=== PATIENT | male | born 1950 | race Caucasian/White ===

== ENCOUNTER 2020-05-11 09:23 | Emergency (ER) | payer MEDICARE, OTHER, SELFPAY ==
[2020-05-11] VITALS (7 sets, daily range): BP systolic 120–122; BP diastolic 64–76; PULSE 87–88; RESP 16–20; TEMP 36.9; O2SAT 87–95; BMI 34.2
--- NOTE | 2020-05-11 09:58 | XRR_ITS ---
PROCEDURE INFORMATION: Exam: XR Chest, 1 View Exam date and time: 05/11/2020 10:18 AM Age: 69 years old Clinical indication: Fever and shortness of breath; Additional info: Covid + - SOB, hypoxia TECHNIQUE: Imaging protocol: XR of the chest Views: 1 view. COMPARISON: No relevant prior studies available. FINDINGS: Lungs: COPD, interstitial disease, and asymmetric left-sided airspace disease in the setting of COVID-19 pneumonitis. Pleural space: No significant pleural effusion. Heart/Mediastinum: Epicardial fat without cardiomegaly. Diaphragm: Asymmetric elevation of the right hemidiaphragm. Bones/joints: Osteopenia and degenerative change. XR/XR chest 1V portable [id number] IMPRESSION: COPD, interstitial disease, and asymmetric left-sided airspace disease in the setting of COVID-19 pneumonitis.
--- NOTE | 2020-05-11 10:01 | W.ED.COVID ---
HPI - COVID General: Chief Complaint: Shortness of Breath/Dyspnea Stated Complaint: Covid postive, on last day of isolation Time Seen by Provider: 05/11/20 09:45 Triage information: Has fever, cough or shortness of breath. Exposure to COVID + person last 14 days History of Present Illness: HPI Narrative: 69-year-old male patient presents to the emergency department with worsening symptoms of COVID illness. States increased shortness of breath with low-grade fever, onset since diagnosis on 05/01/2020 at [facility]. States past several days worsening shortness of breath. O2 saturation 87 to 88% on room air during my conversation with him. Patient was placed on 2 L nasal cannula with oxygen saturation increased to 92%. He reports at home, pulse oximetry readings 92 to 93%. MD complaint: known COVID positive Prior covid testing: yes, results pending at other location ([place]) Prior testing date: 05/01/20 COVID 19 common symptoms: positive fever(s), chills, cough, dyspnea, fatigue, body aches, nasal congestion and nausea; negative headache(s), throat pain, vomiting or diarrhea COVID 19 other sytmptoms: negative chest pain Severity: moderate Treatment prior to arrival: acetaminophen COVID Results: No Data to Display Review of Systems General: Reports: 10 or more systems reviewed and unremarkable except in HPI and below Const: Reports: fever(s), chills, body aches, change in appetite, fatigue and malaise Eyes: Denies: blurry vision or eye redness ENMT: Reports: nasal congestion; Denies: throat pain, hoarseness or epistaxis Card: Reports: orthopnea; Denies: chest pain, palpitations or irregular heart rhythm Resp: Reports: dyspnea and chest congestion GI: Reports: nausea; Denies: abdominal pain, vomiting or diarrhea : Denies: dysuria Musc: Denies: back pain Skin/Breast: Denies: rash or pruritus Neuro: Denies: headache(s), weakness in extremities or behavioral changes Deacon/Lymph: Denies: easy bruising Physical Exam Const: COMMON NORMALS: no acute distress, patient oriented x3 and alert GENERAL APPEARANCE: cooperative NUTRITIONAL APPEARANCE: overweight ORIENTATION/CONSCIOUSNESS: Yes awake, Yes oriented to person, Yes oriented to place and Yes oriented to time HENMT: COMMON NORMALS: normocephalic, Normal external nose present and moist oral mucous membranes HEAD & SCALP: normocephalic NOSE: Normal external nose present Eye: COMMON NORMALS: Equal, round and reactive pupils present and EOMs intact bilaterally GENERAL EYE: appearance normal, both eyes and all related structures PUPIL: Yes Equal, round and reactive pupils present Neck/C-Spine: COMMON NORMALS: full ROM and no lymphadenopathy GENERAL: Yes normal visual inspection and Yes trachea midline CERVICAL SPINE: Yes cervical ROM normal Lymph: LYMPHATIC: no lymphadenopathy noted Chest: COMMONS NORMALS: normal inspection of the chest Resp: COMMON NORMALS: normal respiratory effort and clear to auscultation bilaterally AUSCULTATION: clear to auscultation bilaterally, rhonchi throughout and breath sounds absent bilateral (Bases) Cardio: COMMON NORMALS: regular rhythm, S1 normal heart sound present, S2 normal heart sound present and Peripheral pulses 2+ throughout RHYTHM: regular rhythm HEART SOUNDS: S1 normal heart sound present and S2 normal heart sound present PERIPHERAL PULSES: Peripheral pulses 2+ throughout GI: COMMON NORMALS: Normal to inspection, nondistended, normoactive bowel sounds present, Soft to palpation and non-tender INSPECTION: Yes normal to inspection PALPATION: Yes Soft to palpation : COMMON NORMALS: Yes no CVA tenderness BLADDER/KIDNEY EXAM: Yes no CVA tenderness Back/Pelvis: COMMON NORMALS: no CVA tenderness and thoracic and lumbar spine normal to inspection Extremity: COMMON NORMALS: normal to inspection and capillary refill normal Neuro: COMMON NORMALS: patient oriented x3 and no focal motor deficits SENSORIUM/ORIENTATION: Yes alert, Yes oriented to person, Yes oriented to place and Yes oriented to time Psych: COMMON NORMALS: mental status grossly normal, Normal thought process present and cooperative ACTIVITY/MOTOR BEHAVIOR: Yes appropriate eye contact THOUGHT PROCESS: Normal thought process present Skin: COMMON NORMALS: no rashes or lesions noted and turgor normal GENERAL SKIN EXAM: no rashes or lesions noted and turgor normal Course ED course: 69-year-old male patient presents to the emergency department with worsening COVID symptoms. Tested positive on 05/01/2020 with continual shortness of breath, noted hypoxia while here in the ED, remains low 90s on 3 L nasal cannula, transfer of care to Dr. Marinelli as patient will most likely require hospitalization. Vital Signs: Vital signs: Vital Signs Temperature 98.4 F 05/11/20 09:30 Pulse Rate 87 05/11/20 17:09 Respiratory Rate 16 05/11/20 17:09 Blood Pressure 121/64 05/11/20 15:00 Pulse Oximetry 90 05/11/20 17:09 MDM - COVID Lab Data Result diagrams: 05/11/20 13:17 05/11/20 13:17 Labs: Lab Results 05/11/20 05/11/20 05/11/20 Range/Units 11:15 13:17 13:17 WBC 5.9 (4.0-10.0) 10^3/uL RBC 5.15 (4.1-5.3) 10^6/uL Hgb 15.4 (11.7-16.6) g/dL Hct 45.7 (42.0-52.0) % MCV 88.7 (80-94) fL MCH 29.9 (28.0-34.0) pg MCHC 33.7 (30.0-36.0) g/dL RDW 12.0 L (12.1-15.1) % Plt Count 241 (130-400) 10^3/cmm MPV 10.4 (7.4-10.4) fL Neut % (Auto) 64.6 % Lymph % (Auto) 24.0 % [place] % (Auto) 9.9 % Eos % (Auto) 0.7 % Baso % (Auto) 0.5 % Neut # (Auto) 3.80 (1.8-7.7) 10^3/uL Lymph # (Auto) 1.4 (0.8-4.8) 10^3/uL [place] # (Auto) 0.6 (0.2-0.9) 10^3/uL Eos # (Auto) 0.0 (0.0-0.8) 10^3/uL Baso # (Auto) 0.0 (0.0-0.1) 10^3/uL Nucleated RBC % (auto) 0 % Nucleated RBCs # 0.0 /100WBC Fibrinogen 583 H (174-498) mg/dL D-Dimer 0.48 (0-0.59) ug/mIFEU Specimen Type Arterial Sample Site Radial, right ABG pH 7.48 H (7.35-7.45) ABG pCO2 35.3 (35-45) mmHg ABG pO2 67.6 L (80.0-100.0) mmHg ABG HCO3 26.2 H (22-26) mmol/L ABG O2 Saturation 95.5 ABG Base Excess 2.9 H (-2.0-2.0) mmol/L Pierre Test Pos A-a O2 Gradient 15.0 H (5-10) mmHg Hematocrit 48.0 (42-52) % Hgb O2 Saturation 94.0 L (95-100) % Carboxyhemoglobin 1.1 (0.4-20.1) %THgb Methemoglobin 0.5 (0.4-1.5) % Total Hemoglobin 15.7 (14-18) g/dL Sodium 133.0 (131-143) mmol/L Potassium 3.4 L (3.5-5.0) mmol/L Glucose 100.0 (70-115) mg/dL Ionized Calcium 1.2 (1.1-1.4) mmol/L O2 Delivery Device Nc O2 Liters/Min 3.0 % FiO2 32.0 % Auto Damage Estimator ID Gd Chloride (98-107) mmol/L Carbon Dioxide (22-29) mmol/L Anion Gap (5-19) BUN (8-23) mg/dL Creatinine (0.7-1.2) mg/dL GFR Calculation (90-130) mL/min Calculated Osmolality (285-295) mOsm/kg Lactic Acid (0.5-2.2) mmol/L Calcium (8.5-10.5) mg/dL Total Bilirubin (0.15-1.2) mg/dL AST (0-40) U/L ALT (0-41) U/L Alkaline Phosphatase (40-130) IU/L Lactate Dehydrogenase (135-225) U/L Troponin T Baseline (0-15) ng/L Troponin T 120 Minute (0-15) ng/L Delta Troponin T (0-10) ABS# Total Protein (6.6-8.7) g/dL Albumin (3.5-5.2) g/dL Globulin (1.3-4.6) g/dL 05/11/20 05/11/20 05/11/20 Range/Units 13:17 13:17 13:17 WBC (4.0-10.0) 10^3/uL RBC (4.1-5.3) 10^6/uL Hgb (11.7-16.6) g/dL Hct (42.0-52.0) % MCV (80-94) fL MCH (28.0-34.0) pg MCHC (30.0-36.0) g/dL RDW (12.1-15.1) % Plt Count (130-400) 10^3/cmm MPV (7.4-10.4) fL Neut % (Auto) % Lymph % (Auto) % [place] % (Auto) % Eos % (Auto) % Baso % (Auto) % Neut # (Auto) (1.8-7.7) 10^3/uL Lymph # (Auto) (0.8-4.8) 10^3/uL [place] # (Auto) (0.2-0.9) 10^3/uL Eos # (Auto) (0.0-0.8) 10^3/uL Baso # (Auto) (0.0-0.1) 10^3/uL Nucleated RBC % (auto) % Nucleated RBCs # /100WBC Fibrinogen (174-498) mg/dL D-Dimer (0-0.59) ug/mIFEU Specimen Type Sample Site ABG pH (7.35-7.45) ABG pCO2 (35-45) mmHg ABG pO2 (80.0-100.0) mmHg ABG HCO3 (22-26) mmol/L ABG O2 Saturation ABG Base Excess (-2.0-2.0) mmol/L Pierre Test A-a O2 Gradient (5-10) mmHg Hematocrit (42-52) % Hgb O2 Saturation (95-100) % Carboxyhemoglobin (0.4-20.1) %THgb Methemoglobin (0.4-1.5) % Total Hemoglobin (14-18) g/dL Sodium 134 L (131-143) mmol/L Potassium 3.8 (3.5-5.0) mmol/L Glucose 93 (70-115) mg/dL Ionized Calcium (1.1-1.4) mmol/L O2 Delivery Device O2 Liters/Min % FiO2 % Auto Damage Estimator ID Chloride 94 L (98-107) mmol/L Carbon Dioxide 23 (22-29) mmol/L Anion Gap 20.8 H (5-19) BUN 11 (8-23) mg/dL Creatinine 1.1 (0.7-1.2) mg/dL GFR Calculation 66.4 L (90-130) mL/min Calculated Osmolality 277 L (285-295) mOsm/kg Lactic Acid 1.0 (0.5-2.2) mmol/L Calcium 8.9 (8.5-10.5) mg/dL Total Bilirubin 0.4 (0.15-1.2) mg/dL AST 27 (0-40) U/L ALT 32 (0-41) U/L Alkaline Phosphatase 63 (40-130) IU/L Lactate Dehydrogenase 189 (135-225) U/L Troponin T Baseline 10 (0-15) ng/L Troponin T 120 Minute (0-15) ng/L Delta Troponin T (0-10) ABS# Total Protein 6.7 (6.6-8.7) g/dL Albumin 3.7 (3.5-5.2) g/dL Globulin 3.0 (1.3-4.6) g/dL 05/11/20 Range/Units 15:29 WBC (4.0-10.0) 10^3/uL RBC (4.1-5.3) 10^6/uL Hgb (11.7-16.6) g/dL Hct (42.0-52.0) % MCV (80-94) fL MCH (28.0-34.0) pg MCHC (30.0-36.0) g/dL RDW (12.1-15.1) % Plt Count (130-400) 10^3/cmm MPV (7.4-10.4) fL Neut % (Auto) % Lymph % (Auto) % [place] % (Auto) % Eos % (Auto) % Baso % (Auto) % Neut # (Auto) (1.8-7.7) 10^3/uL Lymph # (Auto) (0.8-4.8) 10^3/uL [place] # (Auto) (0.2-0.9) 10^3/uL Eos # (Auto) (0.0-0.8) 10^3/uL Baso # (Auto) (0.0-0.1) 10^3/uL Nucleated RBC % (auto) % Nucleated RBCs # /100WBC Fibrinogen (174-498) mg/dL D-Dimer (0-0.59) ug/mIFEU Specimen Type Sample Site ABG pH (7.35-7.45) ABG pCO2 (35-45) mmHg ABG pO2 (80.0-100.0) mmHg ABG HCO3 (22-26) mmol/L ABG O2 Saturation ABG Base Excess (-2.0-2.0) mmol/L Pierre Test A-a O2 Gradient (5-10) mmHg Hematocrit (42-52) % Hgb O2 Saturation (95-100) % Carboxyhemoglobin (0.4-20.1) %THgb Methemoglobin (0.4-1.5) % Total Hemoglobin (14-18) g/dL Sodium (131-143) mmol/L Potassium (3.5-5.0) mmol/L Glucose (70-115) mg/dL Ionized Calcium (1.1-1.4) mmol/L O2 Delivery Device O2 Liters/Min % FiO2 % Auto Damage Estimator ID Chloride (98-107) mmol/L Carbon Dioxide (22-29) mmol/L Anion Gap (5-19) BUN (8-23) mg/dL Creatinine (0.7-1.2) mg/dL GFR Calculation (90-130) mL/min Calculated Osmolality (285-295) mOsm/kg Lactic Acid (0.5-2.2) mmol/L Calcium (8.5-10.5) mg/dL Total Bilirubin (0.15-1.2) mg/dL AST (0-40) U/L ALT (0-41) U/L Alkaline Phosphatase (40-130) IU/L Lactate Dehydrogenase (135-225) U/L Troponin T Baseline (0-15) ng/L Troponin T 120 Minute 9.89 (0-15) ng/L Delta Troponin T -0.11 L (0-10) ABS# Total Protein (6.6-8.7) g/dL Albumin (3.5-5.2) g/dL Globulin (1.3-4.6) g/dL COVID Results: No Data to Display Imaging Data CXR: Radiologist's impression: [address] [address] XRay Report Signed Patient: Nishant Shaw #: [id number] : 1Acct#:[id number] Age/Sex: 69 / MADM Date: 05/11/20 Loc: ERRoom/Bed: Attending Dr: Ordering Provider/Ordering MD: Kaykay Goyal Date of Service: 05/11/20 Procedure(s): XR chest 1V portable [id number] Accession Number(s): [id number] Report Number: [id number] PROCEDURE INFORMATION: Exam: XR Chest, 1 View Exam date and time: 05/11/2020 10:18 AM Age: 69 years old Clinical indication: Fever and shortness of breath; Additional info: Covid + - SOB, hypoxia TECHNIQUE: Imaging protocol: XR of the chest Views: 1 view. COMPARISON: No relevant prior studies available. FINDINGS: Lungs: COPD, interstitial disease, and asymmetric left-sided airspace disease in the setting of COVID-19 pneumonitis. Pleural space: No significant pleural effusion. Heart/Mediastinum: Epicardial fat without cardiomegaly. Diaphragm: Asymmetric elevation of the right hemidiaphragm. Bones/joints: Osteopenia and degenerative change. XR/XR chest 1V portable [id number] IMPRESSION: COPD, interstitial disease, and asymmetric left-sided airspace disease in the setting of COVID-19 pneumonitis. Dictated By:Kirill Moctezuma MD Signed By:Kirill Moctezuma MDSigned Date/Time:05/11/20 1048 DD/ 1046 EKG Data EKG 1: EKG interpretation date: 05/11/20 EKG interpretation time: 11:10 Other EKG comments: Sinus rhythm, moderate T wave abnormality, consider lateral ischemia, abnormal EKG Discharge Plan Discharge Patient Disposition: Home Clinical Impression: COVID-19 Condition: Stable Prescriptions: New Decadron 6 mg tablet 6 mg PO DAILY Qty: 7 RF: 0 No Action Euthyrox 137 mcg tablet 137 mcg PO DAILY RF: 0 amlodipine 10 mg tablet 10 mg PO DAILY RF: 0 benazepril 20 mg tablet 20 mg PO DAILY RF: 0 hydrochlorothiazide 12.5 mg tablet 12.5 mg PO DAILY RF: 0 Discharge Orders: Discharge Order (Routine); Ordered 05/11/20 Ordered By: Nory Marinelli Other Ambulatory Orders: DME: Oxygen (Order) Location: None Selected Ordered By: Nory Marinelli DME: Oxygen (Order) Location: None Selected Ordered By: Nory Marinelli Discharge Diet: Advance as tolerated Discharge Activity: Limit activity as instructed Patient Instructions: Viral Pneumonia (ED) Activity Restrictions/Additional Instructions: To continue to self quarantine as long as you are symptomatic. It is recommended that you continue to quarantine for a few days after that. You can check with your primary care doctor for further advice on this. Take the Decadron as prescribed once a day. Return to the emergency room immediately if you feel that you are getting worse or your oxygen level will not stay above 90. Discharge Date/Time: 05/11/20 17:10 Coding Level of Care Code ED Manager Intelligence for Abbey Hernandez Exam Comprehensive
--- NOTE | 2020-05-11 10:45 | ECG_ITS ---
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 Measurements Intervals [place] Rate: 78 P: 36 ID: [id number] QRS: -15 QRSD: 155 T: 156 QT: 387 QTc: 443 Interpretive Statements SINUS RHYTHM LEFT BUNDLE BRANCH BLOCK [120+ ms QRS DURATION, 80+ ms Q/S IN V1/V2, 85+ ms R IN I/aVL/V5/V6] No previous ECG available for comparison Electronically Signed On 05-11-2020 19:45:30 CDT by Laila Ellison M.D. [id number]
[2020-05-11 11:30] LABS: ABG PCO2 35.3 mmHg (35-45); ABG PH Result 7.48 (7.35-7.45); Base Excess ABG 2.9 mmol/L (-2.0-2.0); Blood Gas Allen Test Pos; Blood Gas Operator Identificat GD; Blood Gas Sample Site Radial, right; Blood Gas Sample Type Arterial; Carboxyhemoglobin 1.1 %THgb (0.4-20.1); HCO3 ABG 26.2 mmol/L (22-26); Ionized Calcium Level - ABG 1.2 mmol/L (1.1-1.4); Methemoglobin 0.5 % (0.4-1.5); Oxygen Device NC; Oxygen Saturation ABG 95.5; PO2 ABG 67.6 mmHg (80.0-100.0); Potassium Level - ABG 3.4 mmol/L (3.5-5.0); Total Hemoglobin 15.7 g/dL (14-18)
--- NOTE | 2020-05-11 12:45 | ECG_ITS ---
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 Measurements Intervals [place] Rate: 86 P: 38 MA: 178 QRS: -27 QRSD: 155 T: 135 QT: 383 QTc: 459 Interpretive Statements SINUS RHYTHM LEFT BUNDLE BRANCH BLOCK [120+ ms QRS DURATION, 80+ ms Q/S IN V1/V2, 85+ ms R IN I/aVL/V5/V6] Compared to ECG 05/11/2020 11:00:18 No significant changes Electronically Signed On 05-11-2020 20:14:36 CDT by Laila Ellison M.D. [id number]
[2020-05-11 13:34] LABS: Basophils % 0.5 %; Eosinophils % 0.7 %; Hematocrit 45.7 % (42.0-52.0); Hemoglobin 15.4 g/dL (11.7-16.6); Lymphocytes # 1.4 10^3/uL (0.8-4.8); Mean Corpuscular HGB Conc 33.7 g/dL (30.0-36.0); Mean Corpuscular Hemoglobin 29.9 pg (28.0-34.0); Mean Corpuscular Volume 88.7 fL (80-94); Mean Platelet Volume 10.4 fL (7.4-10.4); Monocytes # 0.6 10^3/uL (0.2-0.9); Monocytes % 9.9 %; Neutrophils % 64.6 %; Nucleated Red Blood Cells % 0 %; Platelet Count 241 10^3/cmm (130-400); Red Blood Count 5.15 10^6/uL (4.1-5.3); White Blood Count 5.9 10^3/uL (4.0-10.0)
[2020-05-11 13:57] LABS: Fibrinogen 583 mg/dL (174-498)
[2020-05-11 14:00] LABS: Alanine Aminotransferase 32 U/L (0-41); Albumin Level 3.7 g/dL (3.5-5.2); Alkaline Phosphatase 63 IU/L (40-130); Aspartate Amino Transferase 27 U/L (0-40); Blood Urea Nitrogen 11 mg/dL (8-23); Calcium 8.9 mg/dL (8.5-10.5); Carbon Dioxide 23 mmol/L (22-29); D Dimer 0.48 ug/mIFEU (0-0.59); Glomerular Filtration Rate 66.4 mL/min (90-130); Glucose 93 mg/dL (65-115); Lactate Dehydrogenase 189 U/L (135-225); Total Bilirubin 0.4 mg/dL (0.15-1.2); Total Protein 6.7 g/dL (6.6-8.7); Troponin(5th) Baseline 10 ng/L (0-15)
[2020-05-11] MEDS: sodium chloride 0.9% 500 ML 999 ML IV (14:03)
[2020-05-11 14:05] LABS: Anion Gap 20.8 (5-19); Chloride 94 mmol/L (98-107); Osmolality Calculated 277 mOsm/kg (285-295); Potassium 3.8 mmol/L (3.5-5.1); Sodium 134 mmol/L (136-145)
[2020-05-11] MEDS: dexamethasone 4 mg/mL INJ 6 MG IVP (14:05)
[2020-05-11 16:10] LABS: Troponin 5 2HR 9.89 ng/L (0-15)
[2020-05-11 16:26] LABS: Troponin 5 2HR Delta -0.11 ABS# (0-10)
== END 2020-05-11 17:10 | disposition home or self-care (01) ==
PROVIDERS: Nurse Practitioner Family; Emergency Provider Emergency Medicine
DX: U07.1 COVID-19 (principal); R09.81 Nasal congestion
CPT/HCPCS: 12345; 36600; 71045; 80051; 80053; 82810; 83605; 83615; 83986; 84484; 85025; 85378; 85384; 93005; 96374; 96375; 99283; 99284; J1100; J7040